=== PATIENT | male | born 1980 | race Caucasian/White ===

== ENCOUNTER 2021-07-21 12:18 | Emergency (ER) | payer OTHER ==
[2021-07-21] MEDS ORDERED: BABY ASPIRIN 81 MG CHEW PO ONE (12:23)
--- NOTE | 2021-07-21 12:23 | ERPHSYRPT ---
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 Today, while at work he felt numb around his mouth and down his left arm with a little bit of anterior, superficial left chest pain. He has never had anything like this before. The patient then passed out. He states that he woke up and his symptoms have improved except there is been some persistent, intermittent shaking of the right lower leg. He also felt as though his left side was weaker than his right side. Patient is not on any medications. He is not taking any new medications. He has had no vomiting or diarrhea. He has no fever or chills. Timing/Duration: today Character of Deficits: new weakness (Left side) Deficits: no difficulties Baseline/Normal Cognition: alert oriented x 3 Current Cognition: alert oriented x 3 Baseline Gait: walks w/o assistance Associated Symptoms: nausea, numbness/tingling in legs/feet (Left upper arm), paresthesia (Perioral), No vision changes Allergies/Adverse Reactions: No Known Drug Allergies Allergy (Unverified 07/21/21 12:33) Home Medications: No Reportable Medications [No Reported Medications] 07/21/21 [History] Travel Risk - International Travel Have you traveled outside of the country in past 3 weeks: No - Coronavirus Screening Are you exhibiting any of the following symptoms?: No Close contact with a COVID-19 positive Pt in past 14-21 Days: No - Review of Systems Constitutional: No Symptoms Eyes: No Symptoms Ears, Nose, & Throat: No Symptoms Respiratory: No Symptoms Cardiac: Chest Pain (Left anterior mild) Abdominal/Gastrointestinal: No Symptoms Genitourinary Symptoms: No Symptoms Musculoskeletal: No Symptoms Skin: No Symptoms Neurological: Parasthesia (Left side perioral, left upper extremity) Psychological: No Symptoms Endocrine: No Symptoms Hematologic/Lymphatic: No Symptoms Immunological/Allergic: No Symptoms All Other Systems: Reviewed and Negative - Past Medical History Pertinent Past Medical History: Yes - Past Surgical History Past Surgical History: Yes - Nursing Vital Signs Nursing Vital Signs: Initial Vital Signs Temperature 97.4 F 07/21/21 12:21 Pulse Rate 87 07/21/21 12:21 Respiratory Rate 18 07/21/21 12:21 Blood Pressure 142/85 07/21/21 12:21 O2 Sat by Pulse Oximetry 95 07/21/21 12:21 Pain Scale Pain Intensity 0 - [place] Coma Scale Best Eye Response ([place]): (4) open spontaneously Best Verbal Response ([place]): (5) oriented Best Motor Response ([place]): (6) obeys commands [place] Total: 15 - Physical Exam General Appearance: no apparent distress, alert, anxiety Eye Exam: bilateral eye: normal inspection, PERRL, EOMI Ears, Nose, Throat Exam: normal ENT inspection, pharynx normal, moist mucous membranes Neck Exam: normal inspection, non-tender, supple, full range of motion Respiratory: normal breath sounds, lungs clear, airway intact, No chest tenderness, No respiratory distress Cardiovascular: regular rate/rhythm, normal heart sounds, normal peripheral pulses Gastrointestinal: soft, normal bowel sounds, No tenderness Rectal Exam: not done Back Exam: normal inspection, normal range of motion, No CVA tenderness, No vertebral tenderness Extremity Exam: normal inspection, normal range of motion, pelvis stable Mental Status: alert, oriented x 3, 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 Exam: normal hearing, normal speech, PERRL Coordination/Gait: normal finger to nose, normal gait Motor/Sensory: no motor deficit, no sensory deficit, no pronator drift Skin Exam: normal color, warm, dry SpO2 Interpretation: normal O2 Delivery: Room Air - Course Nursing assessment & vital signs reviewed: Yes EKG Interpreted by Me: RATE (76), Sinus Rhythm, NORMAL AXIS, NORMAL INTERVALS, NORMAL QRS, NORMAL ST-T, Other (No comparison EKG available.) Ordered Tests: Active Orders 24 hr Category Date Time Status Lay Out Machine Operator STAT Care 07/21/21 12:24 Active EKG-ER Only STAT Care 07/21/21 12:23 Active IV Insertion STAT Care 07/21/21 12:23 Active NPO (ED) STAT Care 07/21/21 12:24 Active Pulse Oximetry (ED) STAT Care 07/21/21 12:23 Active HEAD WITHOUT CONTRAST [CT] Stat Exams 07/21/21 12:20 Completed CBC W DIFF Stat Lab 07/21/21 12:47 Completed CMP Stat Lab 07/21/21 12:47 Completed D-DIMER QUANTITATIVE Stat Lab 07/21/21 12:47 Completed PROTIME WITH INR Stat Lab 07/21/21 12:47 Completed TROPONIN Q3H Lab 07/21/21 12:47 Completed TROPONIN Q3H Lab 07/21/21 15:30 Ordered TROPONIN Q3H Lab 07/21/21 18:30 Ordered TROPONIN Q3H Lab 07/21/21 21:30 Ordered TROPONIN Q3H Lab 07/22/21 00:30 Ordered UA W/RFX UR CULTURE Stat Lab 07/21/21 12:56 Completed Medication Summary Generic Name Dose Route Start Last Admin Trade Name Freq PRN Reason Stop Dose Admin Sodium Chloride 1,000 mls @ 100 mls/hr 07/21/21 12:30 07/21/21 12:48 Sodium Chloride 0.9% 1000 Ml IV 08/20/21 12:29 100 mls/hr .Q10H ALEXANDRO Administration Discontinued Medications Generic Name Dose Route Start Last Admin Trade Name Freq PRN Reason Stop Dose Admin Aspirin 324 mg 07/21/21 12:23 07/21/21 12:57 Baby Aspirin 81 Mg Chew PO 07/21/21 12:24 324 mg STAT ONE Administration Aspirin Confirm 07/21/21 12:56 Baby Aspirin 81 Mg Chew Administered 07/21/21 12:57 Dose 324 mg .ROUTE .STK-MED ONE Lab/Rad Data: Laboratory Result Diagrams 07/21/21 12:47 07/21/21 12:47 Laboratory Results 07/21/21 07/21/21 07/21/21 Range/Units 12:56 12:47 12:47 WBC (4.0-10.5) K/mm3 RBC (4.1-5.6) M/mm3 Hgb (12.5-18.0) gm/dl Hct (42-50) % MCV (78-100) fl MCH (26-32) pg MCHC (32-36) g/dl RDW (11.5-14.0) % Plt Count (150-450) K/mm3 MPV (7.5-11.0) fl Gran % (36.0-66.0) % Eos # (Auto) (0-0.5) Absolute Lymphs (auto) (1.0-4.6) Absolute Monos (auto) (0.0-1.3) Lymphocytes % (24.0-44.0) % Monocytes % (0.0-12.0) % Eosinophils % (0.00-5.0) % Basophils % (0.0-0.4) % Absolute Granulocytes (1.4-6.9) Basophils # (0-0.4) PT 12.2 (9.4-12.5) SECONDS INR 1.03 (0.8-3.0) D-Dimer 499 (215-500) ng/mL Sodium (137-145) mmol/L Potassium (3.5-5.1) mmol/L Chloride (98-107) mmol/L Carbon Dioxide (22-30) mmol/L Anion Gap (5-15) MEQ/L BUN (9-20) mg/dL Creatinine (0.66-1.25) mg/dL Estimated GFR ML/MIN Glucose (74-106) mg/dL Calcium (8.4-10.2) mg/dL Total Bilirubin (0.2-1.3) mg/dL AST (17-59) U/L ALT (0-50) U/L Alkaline Phosphatase (38-126) U/L Troponin I < 0.012 (0.000-0.034) ng/mL Serum Total Protein (6.3-8.2) g/dL Albumin (3.5-5.0) g/dL Urine Color YELLOW (YELLOW) Urine Appearance CLEAR (CLEAR) Urine pH 6.0 (5-6) Ur Specific [place] 1.023 (1.005-1.025) Urine Protein NEGATIVE (Negative) Urine Ketones NEGATIVE (NEGATIVE) Urine Blood NEGATIVE (0-5) Duncan/ul Urine Nitrite NEGATIVE (NEGATIVE) Urine Bilirubin NEGATIVE (NEGATIVE) Urine Urobilinogen 2 (0-1) mg/dL Ur Leukocyte Esterase NEGATIVE (NEGATIVE) Urine WBC (Auto) NONE (0-5) /HPF Urine RBC (Auto) NONE (0-2) /HPF U Epithel Cells (Auto) NONE (FEW) /HPF Urine Bacteria (Auto) NONE SEEN (NEGATIVE) /HPF Urine Mucus (Auto) SLIGHT (NEGATIVE) /HPF Urine Culture Reflexed NO (NO) Urine Glucose NEGATIVE (NEGATIVE) mg/dL 07/21/21 07/21/21 Range/Units 12:47 12:47 WBC 6.8 (4.0-10.5) K/mm3 RBC 5.00 (4.1-5.6) M/mm3 Hgb 15.2 (12.5-18.0) gm/dl Hct 45.2 (42-50) % MCV 90.4 (78-100) fl MCH 30.4 (26-32) pg MCHC 33.6 (32-36) g/dl RDW 12.3 (11.5-14.0) % Plt Count 226 (150-450) K/mm3 MPV 10.8 (7.5-11.0) fl Gran % 65.1 (36.0-66.0) % Eos # (Auto) 0.12 (0-0.5) Absolute Lymphs (auto) 1.55 (1.0-4.6) Absolute Monos (auto) 0.65 (0.0-1.3) Lymphocytes % 22.7 L (24.0-44.0) % Monocytes % 9.5 (0.0-12.0) % Eosinophils % 1.8 (0.00-5.0) % Basophils % 0.9 (0.0-0.4) % Absolute Granulocytes 4.45 (1.4-6.9) Basophils # 0.06 (0-0.4) PT (9.4-12.5) SECONDS INR (0.8-3.0) D-Dimer (215-500) ng/mL Sodium 138 (137-145) mmol/L Potassium 3.9 (3.5-5.1) mmol/L Chloride 106 (98-107) mmol/L Carbon Dioxide 22 (22-30) mmol/L Anion Gap 13.8 (5-15) MEQ/L BUN 19 (9-20) mg/dL Creatinine 0.89 (0.66-1.25) mg/dL Estimated GFR > 60.0 ML/MIN Glucose 109 H (74-106) mg/dL Calcium 8.9 (8.4-10.2) mg/dL Total Bilirubin 0.40 (0.2-1.3) mg/dL AST 39 (17-59) U/L ALT 21 (0-50) U/L Alkaline Phosphatase 92 (38-126) U/L Troponin I (0.000-0.034) ng/mL Serum Total Protein 7.0 (6.3-8.2) g/dL Albumin 3.9 (3.5-5.0) g/dL Urine Color (YELLOW) Urine Appearance (CLEAR) Urine pH (5-6) Ur Specific [place] (1.005-1.025) Urine Protein (Negative) Urine Ketones (NEGATIVE) Urine Blood (0-5) Duncan/ul Urine Nitrite (NEGATIVE) Urine Bilirubin (NEGATIVE) Urine Urobilinogen (0-1) mg/dL Ur Leukocyte Esterase (NEGATIVE) Urine WBC (Auto) (0-5) /HPF Urine RBC (Auto) (0-2) /HPF U Epithel Cells (Auto) (FEW) /HPF Urine Bacteria (Auto) (NEGATIVE) /HPF Urine Mucus (Auto) (NEGATIVE) /HPF Urine Culture Reflexed (NO) Urine Glucose (NEGATIVE) mg/dL - Progress Progress: improved Progress Note: 07/21/21 12:49 CAT scan of the head without contrast is normal. 07/21/21 14:17 Patient states that his symptoms have completely resolved. He is feeling well. He desires to go home. Patient's CAT scan is negative for any acute stroke. Clinically, there is no evidence of any stroke symptoms. The patient blood pressure is in an appropriate range. His D-dimer and troponin levels are negative. His electrolytes are within normal limits. There is no evidence of any urinary tract infection or dehydration. We will discharge the patient to home. Patient is to follow-up with his primary care physician for further management. Counseled pt/family regarding: lab results, diagnosis, need for follow-up, rad results - Departure Departure Disposition: Home Clinical Impression: Syncopal episodes, Non-cardiac chest pain Condition: Stable Critical Care Time: No Referrals: DENISA PEREZ JR [Primary Care Provider] - Additional Instructions: Drink plenty of fluids. Stay out of the sun over the weekend. Stay hydrated well. Avoid any sedating medications or beverages. Follow-up with your primary care physician on 07/24/2021 to make arrangements for further management.
[2021-07-21] MEDS ORDERED: Sodium Chloride 0.9% 1000 ML 1,000 ML IV SCH (12:30)
--- NOTE | 2021-07-21 12:35 | XRAY ---
Indication: Dizziness. Syncope. Stroke. Multiple contiguous axial images obtained through the head without contrast. Comparison: None Normal appearing brain parenchyma, ventricles, and bony calvarium. Visualized paranasal sinuses and mastoid air cells are clear. Impression: Normal CT head without contrast exam.
[2021-07-21] MEDS ORDERED: Sodium Chloride 0.9% 1000 ML 1,000 ML ONE (12:46)
[2021-07-21] MEDS ORDERED: BABY ASPIRIN 81 MG CHEW ONE (12:56)
[2021-07-21 13:02] LABS: Absolute Neutrophil Ct (ANC) 4.45 (1.4-6.9); BASOPHIL % 0.9 % (0.0-0.4); Basophil (Absolute #) 0.06 (0-0.4); Eosinophil % 1.8 % (0.00-5.0); Eosinophil (Absolute #) 0.12 (0-0.5); Hematocrit 45.2 % (42-50); Hemoglobin 15.2 gm/dl (12.5-18.0); INR 1.03 (0.8-3.0); Lymphocyte (Absolute #) 1.55 (1.0-4.6); Lymphocytes % 22.7 % (24.0-44.0); Mean Cell Volume 90.4 fl (78-100); Mean Corpuscular Hemoglobin 30.4 pg (26-32); Mean Corpuscular Hgb Concent. 33.6 g/dl (32-36); Mean Platelet Volume 10.8 fl (7.5-11.0); Monocyte (Absolute #) 0.65 (0.0-1.3); Monocytes % 9.5 % (0.0-12.0); Neutrophil % 65.1 % (36.0-66.0); PROTIME 12.2 SECONDS (9.4-12.5); Platelet Count 226 K/mm3 (150-450); Red Cell Distribution Width 12.3 % (11.5-14.0); White Blood Count 6.8 K/mm3 (4.0-10.5)
[2021-07-21 13:15] LABS: ALBUMIN 3.9 g/dL (3.5-5.0); ALKALINE PHOSPHATASE 92 U/L (38-126); ANION GAP 13.8 MEQ/L (5-15); BLOOD UREA NITROGEN 19 mg/dL (9-20); CHLORIDE 106 mmol/L (98-107); Calcium 8.9 mg/dL (8.4-10.2); Carbon Dioxide 22 mmol/L (22-30); Creatinine 1 0.89 mg/dL (0.66-1.25); EST GLOMERULAR FILTRATION RATE > 60.0 ML/MIN; Glucose 109 mg/dL (74-106); Potassium 3.9 mmol/L (3.5-5.1); SGOT/AST 39 U/L (17-59); SGPT/ALT 21 U/L (0-50); SODIUM 138 mmol/L (137-145)
[2021-07-21 13:57] LABS: Appearance CLEAR (CLEAR); Bilirubin NEGATIVE (NEGATIVE); Blood NEGATIVE Ery/ul (0-5); Glucose NEGATIVE (NEGATIVE); Ketones NEGATIVE (NEGATIVE); Leukocyte Esterase NEGATIVE (NEGATIVE); Mucus SLIGHT /HPF (NEGATIVE); Nitrite NEGATIVE (NEGATIVE); Protein,Urine Dip NEGATIVE (Negative); Specific Gravity 1.023 (1.005-1.025); Urobilinogen 2 mg/dL (0-1)
[2021-07-21 14:01] LABS: Bacteria NONE SEEN /HPF (NEGATIVE)
[2021-07-21 14:06] VITALS: O2SAT 98
[2021-07-21 14:49] VITALS: BP 138/90; PULSE 68
== END 2021-07-21 14:54 | disposition home or self-care (01) ==
LOC: ED 12:18
DX: R55 Syncope and collapse (principal); R07.89 Other chest pain
CPT/HCPCS: 36000; 36415; 70450; 80053; 81001; 84484; 85025; 85379; 85610; 93005; 93041; 94760; 96360; 96361; 99284; A9270-GY

== ENCOUNTER 2025-09-28 14:45 | Emergency (ER) | payer OTHER ==
[2025-09-28 14:59] VITALS: TEMP 98.4
[2025-09-28 15:14] LABS: BASOPHIL % 1.0 % (0.2-1.2); Basophil (Absolute #) 0.07 x10^3/uL (0.01-0.08); Eosinophil (Absolute #) 0 x10^3/uL (0.04-0.54); Hematocrit 46.2 % (40.1-51.0); Hemoglobin 15.6 g/dL (13.7-17.5); IMMATURE GRAN # 0.03 x10^3u/L (0.001-0.031); IMMATURE GRAN % 0.4 % (0.001-0.429); Lymphocyte (Absolute #) 0.94 x10^3/uL (1.32-3.57); Mean Corpuscular Hemoglobin 29.7 pg (25.7-32.2); Mean Corpuscular Hgb Concent. 33.8 g/dL (32.3-36.5); Monocyte (Absolute #) 0.73 x10^3/uL (0.30-0.82); NUCLEATED RBC # 0.00 x10^3u/L (0.00-0.012); NUCLEATED RBC % 0.0 % (0.00-0.2); Platelet Count 241 x10^3/uL (163-337); Red Blood Count 5.25 x10^6/uL (4.63-6.08); White Blood Count 7.3 x10^3/uL (4.23-9.07)
[2025-09-28 15:30] LABS: Calcium 8.9 mg/dL (8.4-10.2); Carbon Dioxide 23.0 mmol/L (22-30); Creatinine 1 1.07 mg/dL (0.66-1.25); EST GLOMERULAR FILTRATION RATE 88.3 ML/MIN; Glucose 118.0 mg/dL (74-106); NT PRO BNPII 59.5 pg/mL (<300); Potassium 4.0 mmol/L (3.5-5.1); SGOT/AST 24.0 U/L (17-59); SGPT/ALT 22.0 U/L (0-50); Total Protein 7.6 g/dL (6.3-8.2)
--- NOTE | 2025-09-28 15:37 | ERPHSYRPT ---
- History of Present Illness Time Seen by Provider: 09/28/25 15:33 Source: patient Exam Limitations: no limitations Patient Subjective Stated Complaint: PT STATES HE HAS SHORTNESS OF BREATH AND CHEST PAIN. Triage Nursing Assessment: PT ARRIVES TO THE ER VIA PRIVATE VEHICLE AND AMBULATES HIMSELF INTO THE ED WITHOUT DIFFICULTY. PT IS ALERT AND ORIENTED X4, PULSES PRESENT AND EQUAL BILATERALLY, PT DOES NOT APPEAR TO BE IN RESPIRATORY DISTRESS. PT LUNG SOUNDS ARE CLEAR AND DIMINISHED BILATERALLY. PT STATES HE HAS HAD WHAT HE THOUGHT WAS A SINUS INFECTION FOR FOUR DAYS BUT THE SHORTNESS OF BREATH JUST STARTED TODAY. PT DOES SAY THAT HE HAD A HEART CATHETERIZATION DONE WITH DR. GORDON YESTERDAY AT [facility]. PT STATES THAT HE GOT ONE STENT PLACED TO HIS DISTAL LAD AND WAS SENT HOME YESTERDAY. PT DID NOT USE HIS INHALER AT HOME. PT DOES STATE THAT HE RECEIVED HIS FLU SHOT AND COVID BOOSTER YESTERDAY WELL. Physician History: Patient is a 45-year-old male presents to our ED for evaluation of shortness of breath. Patient felt that his symptoms were due to a sinus infection. However shortness of breath has not improved over the past 4 days. No active chest pain. Patient reports he had a heart catheterization done yesterday at [facility]. There were no complications. 1 stent was placed in his distal LAD. Patient was sent home after procedure. No associated nausea vomiting or diaphoresis. Patient voices no other complaints or concerns at this time. Portions of this note were created with voice recognition technology. There may be grammatical, spelling, punctuation or sound alike errors Timing/Duration: today Activities at Onset: none Severity of Dyspnea-Max: moderate Severity of Dyspnea-Current: mild Possible Cause: no prior episodes Modifying Factors: Improves With: activity Associated Symptoms: denies symptoms Allergies/Adverse Reactions: albuterol Allergy (Intermediate, Verified 09/28/25 14:46) Home Medications: Aspirin 1 tab PO DAILY 09/28/25 [History] Atorvastatin Calcium 40 mg PO HS 09/28/25 [History] Clopidogrel Bisulfate [Plavix] 75 mg PO DAILY 09/28/25 [History] Fluoxetine HCl 40 mg PO DAILY 09/28/25 [History] Ipratropium Browning [Atrovent Hfa] 17 mcg IH Q6H PRN PRN 09/28/25 [History] Isosorbide Mononitrate 30 mg [Imdur 30 MG] 30 mg PO DAILY 09/28/25 [History] Metoprolol Succinate 25 mg PO DAILY 09/28/25 [History] PANTOPRAZOLE 40 mg Tablet [Protonix 40MG Tablet] 40 mg PO DAILY 09/28/25 [History] Trazodone HCl 50 mg [Desyrel 50 mg] 50 mg PO HS 09/28/25 [History] Viloxazine HCl [Qelbree] 200 mg PO DAILY 09/28/25 [History] Hx Tetanus, Diphtheria Vaccination/Date Given: Yes Hx Influenza Vaccination/Date Given: Yes Hx Pneumococcal Vaccination/Date Given: No Immunizations Up to Date: Yes Travel Risk - International Travel Have you traveled outside of the country in past 3 weeks: No - Emerging Infectious Disease Are you exhibiting symptoms associated with any current EIDs: Yes Symptoms: Cough: New Onset, Shortness of Breath - Review of Systems All Other Systems: Reviewed and Negative - Past Medical History Pertinent Past Medical History: Yes Neurological History: No Pertinent History ENT History: No Pertinent History Cardiac History: No Pertinent History Respiratory History: Sleep Apnea Endocrine Medical History: No Pertinent History Musculoskeletal History: Arthritis GI Medical History: GERD History: No Pertinent History Psycho-Social History: Anxiety, Depression Male Reproductive Disorders: No Pertinent History - Past Surgical History Past Surgical History: Yes Neuro Surgical History: No Pertinent History Cardiac: Cardiac Catheterization Respiratory: No Pertinent History Gastrointestinal: Hernia Repair Genitourinary: No Pertinent History Musculoskeletal: Orthopedic Surgery Male Surgical History: No Pertinent History Other Surgical History: r acl repair, RIGHT MENISCUS REPAIR, CARDIAC CATH 2024 - Social History Smoking Status: Former smoker Exposure to second hand smoke: No Drug Use: none - Social Determinants of Health Will the patient participate in the screening: Yes Do you worry about a steady place to live?: No Do you have any problems with any of the following?: No known problems In the past 12 months,have you had to go without utilities?: No Transportation Issues: No Has anyone in your support network made you feel unsafe?: No Have you or anyone in your house had to go w/o enough food: No - Nursing Vital Signs Nursing Vital Signs: Initial Vital Signs Pulse Rate 109 H 09/28/25 14:47 Respiratory Rate 17 09/28/25 14:47 Blood Pressure 109/84 09/28/25 14:47 O2 Sat by Pulse Oximetry 100 09/28/25 14:47 Pain Scale Pain Intensity 3 - Physical Exam General Appearance: no apparent distress, alert Eye Exam: PERRL/EOMI Neck Exam: normal inspection, supple Cardiovascular/Chest Exam: normal heart sounds, regular rate/rhythm Abdominal/Gastrointestinal Exam: soft, No tenderness, No distention, No mass Extremity Exam: non-tender, normal range of motion, normal inspection, no calf tenderness, no pedal edema Neurologic Exam: alert, oriented x 3, cooperative, policewoman II-XII nml as tested, sensation nml, No motor deficits Skin Exam: normal color, warm, No dry Lymphatic Exam: No adenopathy SpO2 Interpretation: normal SpO2: 94 O2 Delivery: Room Air - Course Nursing assessment & vital signs reviewed: Yes EKG Interpreted by Me: RATE ([id number]), Sinus Tach, NORMAL AXIS, NORMAL INTERVALS, NORMAL QRS - Radiology Exams Chest X-ray Interpretation: Teleradiologist Report (Portable chest demonstrates mild left base infiltrate/atelectasis/effusion.) - CT Exams Chest CT Interpretation: Tele-radiologist Report (No comps. Negative PE. Cardiomegaly bibasilar atelectasis/scarring. Fatty liver. 14 cm splenomegaly. Nothing acute) Ordered Tests: Active Orders 24 hr Category Date Time Status Occ Ther STAT Care 09/28/25 15:06 Active EKG-ER Only STAT Care 09/28/25 15:05 Active IV Insertion STAT Care 09/28/25 15:05 Active Pulse Oximetry (ED) STAT Care 09/28/25 15:05 Active CHEST 1 VIEW (PORTABLE) Stat Exams 09/28/25 15:05 Completed CHEST WITH CONTRAST [CT] Stat Exams 09/28/25 17:58 Taken BLOOD CULTURE Stat Lab 09/28/25 18:15 Received CBC W DIFF Stat Lab 09/28/25 15:00 Completed CMP Stat Lab 09/28/25 15:00 Completed NT PRO BNPII Stat Lab 09/28/25 15:00 Completed TROPONIN Q4H Lab 09/28/25 15:00 Completed TROPONIN Q4H Lab 09/28/25 17:54 Completed TROPONIN Q4H Lab 09/28/25 23:15 Ordered Respiratory Therapy Assessment DAILY RT 09/28/25 15:57 Active Medication Summary Discontinued Medications Generic Name Dose Route Start Last Admin Trade Name Prabha NULL Reason Stop Dose Admin Azithromycin Confirm 09/28/25 19:05 Azithromycin Inj Administered 09/28/25 19:06 Dose 500 mg IV .STK-MED ONE Methylprednisolone Sodium 0 mg 09/28/25 15:43 09/28/25 15:56 Succinate 125 mg/ Sterile IV 09/28/25 15:44 125 mg Water 2 ml STAT ONE Administration Ceftriaxone Sodium 2 gm in 100 mls @ 200 mls/hr 09/28/25 17:55 09/28/25 18:32 Rocephin 2 Gm/100 Ml Nacl IV 09/28/25 18:24 Infused STAT ONE Infusion Azithromycin 500 mg/ Sodium 250 mls @ 250 mls/hr 09/28/25 17:56 09/28/25 20:09 Chloride IV 09/28/25 18:55 Infused STAT STA Infusion Ceftriaxone Sodium Confirm 09/28/25 17:59 Rocephin 2 Gm/100 Ml Nacl Administered 09/28/25 18:00 Dose 2 gm in 100 mls @ ud IV .STK-MED ONE Sodium Chloride Confirm 09/28/25 19:05 Sodium Chloride 0.9% 250 Ml Administered 09/28/25 19:06 Dose 250 mls @ ud IV .STK-MED ONE Ipratropium Browning Confirm 09/28/25 15:48 Ipratropium Browning 0.5 Mg/Neb Administered 09/28/25 15:49 Dose 0.5 mg IH .STK-MED ONE Ipratropium Browning 0.5 mg 09/28/25 15:56 09/28/25 15:56 Ipratropium Browning 0.5 Mg/Neb IH 09/28/25 15:57 0.5 mg STAT ONE Administration Methylprednisolone Sodium Succinate Confirm 09/28/25 15:56 Methylprednis Sod Succ 125 Mg/2 Ml Vial Administered 09/28/25 15:57 Dose 125 mg .ROUTE .STK-MED ONE Sterile Water Confirm 09/28/25 15:55 Water For Injection,Sterile 10 Ml Vial Administered 09/28/25 15:56 Dose 10 ml IJ .STK-MED ONE Lab/Rad Data: Laboratory Result Diagrams 09/28/25 15:00 09/28/25 15:00 Laboratory Results 09/28/25 09/28/25 09/28/25 Range/Units 17:54 15:00 15:00 WBC (4.23-9.07) x10^3/uL RBC (4.63-6.08) x10^6/uL Hgb (13.7-17.5) g/dL Hct (40.1-51.0) % MCV (79.0-92.2) fL MCH (25.7-32.2) pg MCHC (32.3-36.5) g/dL RDW (11.6-14.4) % Plt Count (163-337) x10^3/uL MPV (9.4-12.4) fL Gran % (34.0-67.9) % Immature Gran % (Auto) (0.001-0.429) % Nucleat RBC Rel Count (0.00-0.2) % Eos # (Auto) (0.04-0.54) x10^3/uL Immature Gran # (Auto) (0.001-0.031) x10^3u/L Absolute Lymphs (auto) (1.32-3.57) x10^3/uL Absolute Monos (auto) (0.30-0.82) x10^3/uL Absolute Nucleated RBC (0.00-0.012) x10^3u/L Lymphocytes % (21.8-53.1) % Monocytes % (5.3-12.2) % Eosinophils % (0.8-7.0) % Basophils % (0.2-1.2) % Absolute Granulocytes (1.78-5.38) x10^3/uL Basophils # (0.01-0.08) x10^3/uL Sodium 135 (135-145) mmol/L Potassium 4.0 (3.5-5.1) mmol/L Chloride 103 (98-107) mmol/L Carbon Dioxide 23 (22-30) mmol/L Anion Gap 12.8 (5-15) MEQ/L BUN 10 (9-20) mg/dL Creatinine 1.07 (0.66-1.25) mg/dL Estimated GFR 88.3 ML/MIN Glucose 118 H (74-106) mg/dL Calcium 8.9 (8.4-10.2) mg/dL Total Bilirubin 0.50 (0.2-1.3) mg/dL AST 24 (17-59) U/L ALT 22 (0-50) U/L Alkaline Phosphatase 117 (38-126) U/L Troponin I < 0.012 < 0.012 (0.000-0.033) ng/mL NT-Pro-B Natriuret Pep 59.5 (<300) pg/mL Serum Total Protein 7.6 (6.3-8.2) g/dL Albumin 4.1 (3.5-5.0) g/dL 09/28/25 Range/Units 15:00 WBC 7.3 (4.23-9.07) x10^3/uL RBC 5.25 (4.63-6.08) x10^6/uL Hgb 15.6 (13.7-17.5) g/dL Hct 46.2 (40.1-51.0) % MCV 88.0 (79.0-92.2) fL MCH 29.7 (25.7-32.2) pg MCHC 33.8 (32.3-36.5) g/dL RDW 11.6 (11.6-14.4) % Plt Count 241 (163-337) x10^3/uL MPV 10.2 (9.4-12.4) fL Gran % 75.8 H (34.0-67.9) % Immature Gran % (Auto) 0.4 (0.001-0.429) % Nucleat RBC Rel Count 0.0 (0.00-0.2) % Eos # (Auto) 0 L (0.04-0.54) x10^3/uL Immature Gran # (Auto) 0.03 (0.001-0.031) x10^3u/L Absolute Lymphs (auto) 0.94 L (1.32-3.57) x10^3/uL Absolute Monos (auto) 0.73 (0.30-0.82) x10^3/uL Absolute Nucleated RBC 0.00 (0.00-0.012) x10^3u/L Lymphocytes % 12.8 L (21.8-53.1) % Monocytes % 10.0 (5.3-12.2) % Eosinophils % 0.0 L (0.8-7.0) % Basophils % 1.0 (0.2-1.2) % Absolute Granulocytes 5.56 H (1.78-5.38) x10^3/uL Basophils # 0.07 (0.01-0.08) x10^3/uL Sodium (135-145) mmol/L Potassium (3.5-5.1) mmol/L Chloride (98-107) mmol/L Carbon Dioxide (22-30) mmol/L Anion Gap (5-15) MEQ/L BUN (9-20) mg/dL Creatinine (0.66-1.25) mg/dL Estimated GFR ML/MIN Glucose (74-106) mg/dL Calcium (8.4-10.2) mg/dL Total Bilirubin (0.2-1.3) mg/dL AST (17-59) U/L ALT (0-50) U/L Alkaline Phosphatase (38-126) U/L Troponin I (0.000-0.033) ng/mL NT-Pro-B Natriuret Pep (<300) pg/mL Serum Total Protein (6.3-8.2) g/dL Albumin (3.5-5.0) g/dL - Progress Progress: improved Air Movement: good Progress Note: Chest x-ray independently reviewed and interpreted by Dr. Samaniego at 3:42 PM. No previous chest x-rays available for comparison. However no acute findings. This is a preliminary read. Formal read pending 09/28/25 15:42 Case discussed with stock letterer Dr. Crawford who feels that this is likely not related to his heart. He thinks this may be a possible forming pneumonia. We will obtain blood cultures and administer antibiotics. However in light of patient's ongoing symptomology he will be transferred to [facility]. Dr. Crawford will accept him. I talked to Dr. Crawford at 5:48 PM. 09/28/25 17:52 Case discussed with hospitalist at [facility] in [place] who accepts transfer at 6:24 PM. They want to be notified of the pending CTA chest results prior to transfer. 09/28/25 18:24 Patient received antibiotics to cover possible infection/pneumonia. History obtained from patient Differential diagnosis includes pneumonia, PE, CHF No acute findings on CTA chest. Negative PE study 09/28/25 19:48 Patient is a 45-year-old male presents to our ED for evaluation of shortness of breath. Patient felt that his symptoms were due to a sinus infection. However shortness of breath has not improved over the past 4 days. No active chest pain. Patient reports he had a heart catheterization done yesterday at [facility]. There were no complications. 1 stent was placed in his distal LAD. Physical exam essentially nonremarkable. Laboratory workup shows troponin negative x 2. CTA chest negative for PE. Chest x-ray shows left lower lobe infiltrate/effusion. Patient aware that he will be transferred to [facility] been sent for further evaluation and treatment. Complexity of problems addressed is moderate acute complicated. No critical care time. Complex of data reviewed and analyzed is extensive. Test ordered chest reviewed results analyzed and correlated clinically with history and physical exam. Risk of complication at risk of morbidity/mortality of patient management is high. Patient requires transfer to higher level of care. Vital stable. Time spent to transfer patient approximately 20 minutes. Plan of care established for shared decision making. No social determinants of health present to impede follow-up. Portions of this note were created with voice recognition technology. There may be grammatical, spelling, punctuation or sound alike errors 09/28/25 21:54 Blood Culture(s) Obtained: No Antibiotics given: No Counseled pt/family regarding: lab results, diagnosis, need for follow-up, rad results - Departure Departure Disposition: Transfer Clinical Impression: Shortness of breath, Hypoxia, Pleural effusion Condition: Stable Critical Care Time: No Referrals: DENISA PEREZ JR [Primary Care Provider, ORTHOPEDICS] - Follow up/PCP as directed
[2025-09-28] MEDS ORDERED: Atrovent 0.5MG NEBULE IH ONE (15:48)
[2025-09-28] MEDS ORDERED: Sterile H2O 10 ml IJ ONE (15:55)
[2025-09-28] MEDS: solu-MEDROL 125 MG, Sterile H2O 10 ml 2 ML IV ONE (15:56)
[2025-09-28] MEDS: Atrovent 0.5MG NEBULE IH ONE (15:56)
--- NOTE | 2025-09-28 16:13 | XRAY ---
Indication: Short of breath. Comparison: None Portable chest demonstrates mild left base infiltrate/atelectasis/effusion. Remaining heart and lungs unremarkable. Bony thorax intact.
[2025-09-28] MEDS ORDERED: ROCEPHIN 2 GM/100 ML NACL 2 GM/100 ML IVPB IV ONE (17:59)
[2025-09-28] MEDS: ROCEPHIN 2 GM/100 ML NACL 2 GM/100 ML IVPB IV ONE (18:02)
[2025-09-28] MEDS ORDERED: ZITHROMAX IV IV ONE (19:05)
[2025-09-28] MEDS: ZITHROMAX IV*** 500 MG in Sodium Chloride 0.9% 250 ML 250 ML IV STA (19:09)
[2025-09-28 21:59] VITALS: O2SAT 94
[2025-09-28 22:08] VITALS: BP 114/71; PULSE 95; RESP 20
--- NOTE | 2025-09-29 09:02 | XRAY ---
Indication: Short of breath. Multiple contiguous axial images obtained through the chest using 80 cc Isovue 370 contrast and PE protocol. Comparison: None Adequate opacification pulmonary arteries to include lobar and segmental branches. No pulmonary embolus. Heart is enlarged. Aorta is normal in course and caliber. No pathologic mediastinal/hilar lymphadenopathy. Lungs demonstrates mild bibasilar subsegmental atelectasis/scarring. No suspicious pulmonary mass/nodule, infiltrate, or effusion. Bony thorax intact with osteopenia and minimal degenerative changes throughout the spine. Limited upper abdomen demonstrates mild diffuse fatty liver, 14.1 cm splenomegaly, and colonic diverticulosis. Impression: 1. Negative pulmonary embolus. 2. Incidental cardiomegaly, atelectasis/scarring, chronic bony findings, fatty liver, splenomegaly, and colonic diverticulosis.
== END 2025-09-28 22:05 | disposition short-term general hospital (02) ==
LOC: ED 14:45
DX: R06.02 Shortness of breath (principal); R09.02 Hypoxemia; J90 Pleural effusion, not elsewhere classified; R07.9 Chest pain, unspecified; Z79.02 Long term (current) use of antithrombotics/antiplatelets; Z79.899 Other long term (current) drug therapy

== ENCOUNTER 2025-11-03 17:44 | Observation (INO) | payer SELFPAY ==
--- NOTE | 2025-11-03 17:54 | ERPHSYRPT ---
<DONALDO MARHC - Last Filed: 11/03/25 19:25> - History of Present Illness Time Seen by Provider: 11/03/25 17:54 Historian: patient, family Exam Limitations: no limitations Physician History: This 45-year-old overweight white male patient arrives per private vehicle with a complaint of stabbing constant substernal central chest pain that is associated with tingling in his left arm. Patient took 1 nitroglycerin and 1 baby aspirin. On my examination patient has no chest pain. It has completely subsided as has the left arm tingling. He is not short of breath. No abdominal pain. He has no nausea vomiting or diarrhea symptoms. Patient had a single cardiac stent (LAD) placed at [facility] in [facility]. Patient is on Plavix and a baby aspirin daily. He has a history of hyperlipidemia, hypertension, gastroesophageal reflux disease and sleep apnea. Patient has a history of anxiety and depression. Timing/Duration: today Quality: sharpness, stabbing Location: substernal, central Chest Pain Radiation: arm (Separate left arm stinging) Severity of Pain-Max: mild (To moderate) Severity of Pain-Current: none Modifying Factors: Improves With: nitroglycerin, aspirin Associated Symptoms: denies symptoms Prior Chest Pain/Cardiac Workup: cardiac cath, heart attack Nitro Today/Relief: no nitro taken today, 0.4 mg x 1 (Provided at home) Aspirin Treatment Today: no aspirin today, 81 mg x 1 (Provided at home) Allergies/Adverse Reactions: albuterol Allergy (Intermediate, Verified 11/03/25 17:51) Home Medications: Aspirin 1 tab PO DAILY 09/28/25 [History] Atorvastatin Calcium 40 mg PO HS 09/28/25 [History] Clopidogrel Bisulfate [Plavix] 75 mg PO DAILY 09/28/25 [History] Fluoxetine HCl 40 mg PO DAILY 09/28/25 [History] Ipratropium [place] [Atrovent Hfa] 17 mcg IH Q6H PRN PRN 09/28/25 [History] Isosorbide Mononitrate 30 mg [Imdur 30 MG] 30 mg PO DAILY 09/28/25 [History] Metoprolol Succinate 25 mg PO DAILY 09/28/25 [History] Trazodone HCl 50 mg [Desyrel 50 mg] 50 mg PO HS 09/28/25 [History] Hx Tetanus, Diphtheria Vaccination/Date Given: Yes Hx Influenza Vaccination/Date Given: Yes Hx Pneumococcal Vaccination/Date Given: No Travel Risk - International Travel Have you traveled outside of the country in past 3 weeks: No - Emerging Infectious Disease Are you exhibiting symptoms associated with any current EIDs: Yes Symptoms: Cough: New Onset, Shortness of Breath - Review of Systems Constitutional: No Symptoms Eyes: No Symptoms Ears, Nose, & Throat: No Symptoms Respiratory: No Symptoms Cardiac: No Symptoms, Chest Pain (Now resolved) Abdominal/Gastrointestinal: No Symptoms Genitourinary Symptoms: No Symptoms Musculoskeletal: No Symptoms Skin: No Symptoms Neurological: No Symptoms Psychological: No Symptoms Endocrine: No Symptoms Hematologic/Lymphatic: No Symptoms Immunological/Allergic: No Symptoms All Other Systems: Reviewed and Negative - Past Medical History Pertinent Past Medical History: Yes Neurological History: No Pertinent History ENT History: No Pertinent History Cardiac History: No Pertinent History Respiratory History: Sleep Apnea Endocrine Medical History: No Pertinent History Musculoskeletal History: Arthritis GI Medical History: GERD History: No Pertinent History Psycho-Social History: Anxiety, Depression Male Reproductive Disorders: No Pertinent History - Past Surgical History Past Surgical History: Yes Neuro Surgical History: No Pertinent History Cardiac: Cardiac Catheterization Respiratory: No Pertinent History Gastrointestinal: Hernia Repair Genitourinary: No Pertinent History Musculoskeletal: Orthopedic Surgery Male Surgical History: No Pertinent History Other Surgical History: r acl repair, RIGHT MENISCUS REPAIR, CARDIAC CATH 2024 - Social History Smoking Status: Former smoker Exposure to second hand smoke: No Drug Use: none - Social Determinants of Health Will the patient participate in the screening: Yes Do you worry about a steady place to live?: No In the past 12 months,have you had to go without utilities?: No Transportation Issues: No Has anyone in your support network made you feel unsafe?: No Have you or anyone in your house had to go w/o enough food: No - Physical Exam General Appearance: no apparent distress, alert, anxiety Eye Exam: PERRL/EOMI, eyes nml inspection Ears, Nose, Throat Exam: normal ENT inspection, moist mucous membranes Neck Exam: normal inspection, non-tender, supple, full range of motion Respiratory Exam: normal breath sounds, lungs clear, airway intact, No chest tenderness, No respiratory distress Cardiovascular Exam: regular rate/rhythm, normal heart sounds, normal peripheral pulses Gastrointestinal/Abdomen Exam: soft, normal bowel sounds, No tenderness Rectal Exam: not done Back Exam: normal inspection, normal range of motion, No CVA tenderness, No vertebral tenderness Extremity Exam: normal inspection, normal range of motion, pelvis stable Neurologic Exam: alert, oriented x 3, cooperative, 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 as tested, nml cerebellar function, nml station & gait, sensation nml Skin Exam: normal color, warm, dry Lymphatic Exam: No adenopathy SpO2 Interpretation: normal O2 Delivery: Room Air - Course Nursing assessment & vital signs reviewed: Yes - Progress Progress: improved, re-examined Air Movement: good Progress Note: 11/03/25 18:57 My medical decision making and the assignment of moderate complexity of this patient's medical issue today is based on review of the patient's past medical history, reviewed patient's medication list, reviewed patient drug allergy list, history presents and physical findings on examination. The workup in this patient includes placement of intravenous line, twelve-lead EKG, 3 baby aspirin orally, CBC, CMP, magnesium level, troponin level, chest x-ray, PT/INR. Differential diagnosis includes was not limited to myocardial infarction, electrolyte abnormalities, pulmonary infiltrate, arrhythmia 11/03/25 19:25 I interpreted the patient's laboratory data results. Based on laboratory data results there are no acute, emergent medical issues. I interpreted the patient's preliminary chest x-ray report. There is no evidence of any acute cardiopulmonary process. The patient has significant cardiac history. Although the the troponin level is negative and there is no evidence of any acute findings on the patient's twelve-lead EKG. The patient will undergo a second troponin level and repeat twelve-lead EKG. He will need to be observed in the hospital setting. I reviewed the patient history and the initial laboratory data results and EKG findings on this patient with Dr. Ashok Samaniego. He will follow-up on the pending studies and make final disposition. Blood Culture(s) Obtained: No Antibiotics given: No Medical Desision Making - Diagnostic Testing Diagnostic test were ordered, analyzed, and reviewed by me: Yes Radiological Interpretation: Interpreted by me, Reviewed by me, Teleradiologist Report - Risk of complications The pt has a high risk of morbidity or mortality based on: Decision regarding hospitilization or escalation of hosp level of care - Departure Departure Disposition: Observation Clinical Impression: Chest pain, ACS (acute coronary syndrome) Condition: Stable Critical Care Time: No Referrals: DENISA PEREZ JR [Primary Care Provider, ORTHOPEDICS] - Follow up/PCP as directed <ASHOK SAMANIEGO - Last Filed: 11/03/25 21:07> - Nursing Vital Signs Nursing Vital Signs: Initial Vital Signs Temperature 97.8 F 11/03/25 17:44 Pulse Rate 92 H 11/03/25 17:44 Respiratory Rate 23 11/03/25 17:44 Blood Pressure 122/99 11/03/25 17:44 O2 Sat by Pulse Oximetry 94 L 11/03/25 17:44 Pain Scale Pain Intensity 4 Ordered Tests: Active Orders 24 hr Category Date Time Status EKG-ER Only STAT Care 11/03/25 17:54 Completed IV Insertion STAT Care 11/03/25 17:54 Active Pulse Oximetry (ED) STAT Care 11/03/25 17:54 Active CHEST 1 VIEW (PORTABLE) Stat Exams 11/03/25 17:54 Taken CBC W DIFF Stat Lab 11/03/25 17:50 Completed CMP Stat Lab 11/03/25 18:20 Completed MAGNESIUM Stat Lab 11/03/25 18:20 Completed PROTIME WITH INR Stat Lab 11/03/25 17:50 Completed TROPONIN Q4H Lab 11/03/25 18:20 Completed TROPONIN Q4H Lab 11/03/25 20:15 Completed TROPONIN Q4H Lab 11/04/25 02:00 Ordered Transfer Order Routine Transfer 11/03/25 Ordered Medication Summary Discontinued Medications Generic Name Dose Route Start Last Admin Trade Name Timq PRN Reason Stop Dose Admin Aspirin 324 mg 11/03/25 17:54 11/03/25 18:04 Aspirin 81 Mg Tab.Chew PO 11/03/25 17:55 Not Given STAT ONE Aspirin 243 mg 11/03/25 18:10 11/03/25 18:18 Aspirin 81 Mg Tab.Chew PO 11/03/25 18:11 243 mg STAT ONE Administration Aspirin Confirm 11/03/25 18:17 Aspirin 81 Mg Tab.Chew Administered 11/03/25 18:18 Dose 243 mg .ROUTE .STK-MED ONE Lab/Rad Data: Laboratory Result Diagrams 11/03/25 17:50 11/03/25 18:20 Laboratory Results 11/03/25 11/03/25 11/03/25 Range/Units 20:15 18:20 18:20 WBC (4.23-9.07) x10^3/uL RBC (4.63-6.08) x10^6/uL Hgb (13.7-17.5) g/dL Hct (40.1-51.0) % MCV (79.0-92.2) fL MCH (25.7-32.2) pg MCHC (32.3-36.5) g/dL RDW (11.6-14.4) % Plt Count (163-337) x10^3/uL MPV (9.4-12.4) fL Gran % (34.0-67.9) % Immature Gran % (Auto) (0.001-0.429) % Nucleat RBC Rel Count (0.00-0.2) % Eos # (Auto) (0.04-0.54) x10^3/uL Immature Gran # (Auto) (0.001-0.031) x10^3u/L Absolute Lymphs (auto) (1.32-3.57) x10^3/uL Absolute Monos (auto) (0.30-0.82) x10^3/uL Absolute Nucleated RBC (0.00-0.012) x10^3u/L Lymphocytes % (21.8-53.1) % Monocytes % (5.3-12.2) % Eosinophils % (0.8-7.0) % Basophils % (0.2-1.2) % Absolute Granulocytes (1.78-5.38) x10^3/uL Basophils # (0.01-0.08) x10^3/uL PT (9.4-12.5) SECONDS INR (0.8-3.0) Sodium 137 (135-145) mmol/L Potassium 4.5 (3.5-5.1) mmol/L Chloride 103 (98-107) mmol/L Carbon Dioxide 24 (22-30) mmol/L Anion Gap 14.8 (5-15) MEQ/L BUN 18 (9-20) mg/dL Creatinine 1.05 (0.66-1.25) mg/dL Estimated GFR 90.3 ML/MIN Glucose 103 (74-106) mg/dL Calcium 9.7 (8.4-10.2) mg/dL Magnesium 2.2 (1.6-2.3) mg/dL Total Bilirubin 0.50 (0.2-1.3) mg/dL AST 28 (17-59) U/L ALT 25 (0-50) U/L Alkaline Phosphatase 101 (38-126) U/L Troponin I < 0.012 < 0.012 (0.000-0.033) ng/mL Serum Total Protein 7.5 (6.3-8.2) g/dL Albumin 4.3 (3.5-5.0) g/dL 11/03/25 11/03/25 Range/Units 17:50 17:50 WBC 6.8 (4.23-9.07) x10^3/uL RBC 5.47 (4.63-6.08) x10^6/uL Hgb 16.3 (13.7-17.5) g/dL Hct 48.4 (40.1-51.0) % MCV 88.5 (79.0-92.2) fL MCH 29.8 (25.7-32.2) pg MCHC 33.7 (32.3-36.5) g/dL RDW 11.8 (11.6-14.4) % Plt Count 278 (163-337) x10^3/uL MPV 10.4 (9.4-12.4) fL Gran % 56.0 (34.0-67.9) % Immature Gran % (Auto) 0.4 (0.001-0.429) % Nucleat RBC Rel Count 0.0 (0.00-0.2) % Eos # (Auto) 0.01 L (0.04-0.54) x10^3/uL Immature Gran # (Auto) 0.03 (0.001-0.031) x10^3u/L Absolute Lymphs (auto) 2.33 (1.32-3.57) x10^3/uL Absolute Monos (auto) 0.58 (0.30-0.82) x10^3/uL Absolute Nucleated RBC 0.00 (0.00-0.012) x10^3u/L Lymphocytes % 34.1 (21.8-53.1) % Monocytes % 8.5 (5.3-12.2) % Eosinophils % 0.1 L (0.8-7.0) % Basophils % 0.9 (0.2-1.2) % Absolute Granulocytes 3.83 (1.78-5.38) x10^3/uL Basophils # 0.06 (0.01-0.08) x10^3/uL PT 10.6 (9.4-12.5) SECONDS INR 0.94 (0.8-3.0) Sodium (135-145) mmol/L Potassium (3.5-5.1) mmol/L Chloride (98-107) mmol/L Carbon Dioxide (22-30) mmol/L Anion Gap (5-15) MEQ/L BUN (9-20) mg/dL Creatinine (0.66-1.25) mg/dL Estimated GFR ML/MIN Glucose (74-106) mg/dL Calcium (8.4-10.2) mg/dL Magnesium (1.6-2.3) mg/dL Total Bilirubin (0.2-1.3) mg/dL AST (17-59) U/L ALT (0-50) U/L Alkaline Phosphatase (38-126) U/L Troponin I (0.000-0.033) ng/mL Serum Total Protein (6.3-8.2) g/dL Albumin (3.5-5.0) g/dL - Progress Progress Note: Patient endorsed to Dr. Samaniego at approximately [address] Samaniego advised to follow- up on second troponin. Second troponin also negative. I contacted hospitalist Dr. Bartholomew who accepts admission to observation at 9:04 PM. Plan of care discussed with patient. Patient agreed to admission at [facility] for further evaluation and treatment. Portions of this note were created with voice recognition technology. There may be grammatical, spelling, punctuation or sound alike errors 11/03/25 21:06
[2025-11-03 18:01] LABS: BASOPHIL % 0.9 % (0.2-1.2); Basophil (Absolute #) 0.06 x10^3/uL (0.01-0.08); Eosinophil (Absolute #) 0.01 x10^3/uL (0.04-0.54); Hematocrit 48.4 % (40.1-51.0); Hemoglobin 16.3 g/dL (13.7-17.5); IMMATURE GRAN # 0.03 x10^3u/L (0.001-0.031); IMMATURE GRAN % 0.4 % (0.001-0.429); Lymphocyte (Absolute #) 2.33 x10^3/uL (1.32-3.57); Mean Corpuscular Hemoglobin 29.8 pg (25.7-32.2); Mean Corpuscular Hgb Concent. 33.7 g/dL (32.3-36.5); Monocyte (Absolute #) 0.58 x10^3/uL (0.30-0.82); NUCLEATED RBC # 0.00 x10^3u/L (0.00-0.012); NUCLEATED RBC % 0.0 % (0.00-0.2); Platelet Count 278 x10^3/uL (163-337); Red Blood Count 5.47 x10^6/uL (4.63-6.08); White Blood Count 6.8 x10^3/uL (4.23-9.07)
[2025-11-03] MEDS: BABY ASPIRIN 81 MG CHEW PO ONE ×2 (18:04→18:18)
[2025-11-03 18:17] LABS: INR 0.94 (0.8-3.0); PROTIME 10.6 SECONDS (9.4-12.5)
[2025-11-03] MEDS ORDERED: BABY ASPIRIN 81 MG CHEW ONE (18:17)
[2025-11-03 19:04] LABS: Calcium 9.7 mg/dL (8.4-10.2); Carbon Dioxide 24.0 mmol/L (22-30); Creatinine 1 1.05 mg/dL (0.66-1.25); EST GLOMERULAR FILTRATION RATE 90.3 ML/MIN; Glucose 103.0 mg/dL (74-106); Potassium 4.5 mmol/L (3.5-5.1); SGOT/AST 28.0 U/L (17-59); SGPT/ALT 25.0 U/L (0-50); Total Protein 7.5 g/dL (6.3-8.2)
[2025-11-04] MEDS ORDERED: IPRATROPIUM BROMIDE AD IH PRN (00:07)
[2025-11-04] MEDS ORDERED: Zofran 4 MG/2 ML VIAL IV PRN (00:10)
[2025-11-04] MEDS ORDERED: TYLENOL 325 MG PO PRN (00:10)
[2025-11-04] MEDS ORDERED: Nitrostat 0.4 MG Tablet SL PRN (00:12)
--- NOTE | 2025-11-04 01:25 | PCM.HP ---
History of Present Illness - Chief Complaint Chief Complaint: Chest pain, ACS Date: 11/03/25 History of Present Illness: is a 45 year old male with a history of CAD (follows with Dr. Caceres; had PCI x 1 to the LAD in August [address] [facility] in [facility]), hyperlipidemia, hypertension, gastroesophageal reflux disease, sleep apnea, anxiety and depression, who presented to the ED with stabbing constant substernal central chest pain that was associated with tingling in his left arm. The patient took 1 nitroglycerin and 1 baby aspirin, with resolution of symptoms at the time of assessment by the ED physician. He denied shortness of breath, abdominal pain, nausea, vomiting, or diarrhea. Workup in the ED did not demonstrate evidence of a WI. - Review of Systems Constitutional: No Symptoms Eyes: No Symptoms Ears, Nose, & Throat: No Symptoms Respiratory: No Symptoms Cardiac: Chest Pain, No Edema, No Palpitations, No Syncope, No Orthopnea, No PND Abdominal/Gastrointestinal: No Symptoms Genitourinary Symptoms: No Symptoms Musculoskeletal: No Symptoms Skin: No Symptoms Neurological: Parasthesia, Sensory Changes, No Dizziness, No Focal Weakness, No Gait Changes, No Headache, No Irritability, No Lethargy, No Paralysis, No Seizure, No Speech Changes, No Tics, No Tremors, No Vertigo Psychological: No Symptoms Endocrine: No Symptoms Hematologic/Lymphatic: No Symptoms Immunological/Allergic: No Symptoms All Other Systems: Reviewed and Negative Medications & Allergies Home Medications: Home Medication List Aspirin 1 tab PO DAILY 09/28/25 [History Confirmed 11/03/25] Atorvastatin Cal[place] 40 mg PO HS 09/28/25 [History Confirmed 11/03/25] Clopidogrel Bisulfate [Plavix] 75 mg PO DAILY 09/28/25 [History Confirmed 11/03/25] Fluoxetine HCl 40 mg PO DAILY 09/28/25 [History Confirmed 11/03/25] Ipratropium [place] [Atrovent Hfa] 17 mcg IH Q6H PRN PRN 09/28/25 [History Confirmed 11/03/25] Isosorbide Mononitrate 30 mg [Imdur 30 MG] 30 mg PO DAILY 09/28/25 [History Confirmed 11/03/25] Metoprolol Succinate 25 mg PO DAILY 09/28/25 [History Confirmed 11/03/25] Trazodone HCl 50 mg [Desyrel 50 mg] 50 mg PO HS 09/28/25 [History Confirmed 11/03/25] Allergies/Adverse Reactions: Allergies Allergy/AdvReac Type Severity Reaction Status Date / Time albuterol Allergy Intermediate Verified 11/03/25 17:51 - Past Medical History Past Medical History: Yes Neurological History: No Pertinent History ENT History: No Pertinent History Cardiac History: No Pertinent History Respiratory History: Sleep Apnea Endocrine Medical History: No Pertinent History Musculoskelatal History: Arthritis GI Medical History: GERD History: No Pertinent History Pyscho-Social History: Anxiety, Depression Male Reproductive Disorders: No Pertinent History Comment: blockage in heart- stent placed in LAD- placed in september- Skip Caceres - Past Surgical History Past Surgical History: Yes Neuro Surgical History: No Pertinent History Cardiac History: Cardiac Catheterization Respiratory Surgery: No Pertinent History GI Surgical History: Hernia Repair Genitourinary Surgical Hx: No Pertinent History Musculskeletal Surgical Hx: Orthopedic Surgery Male Surgical History: No Pertinent History Other Surgical History: r acl repair, RIGHT MENISCUS REPAIR, CARDIAC CATH 2024 Significant Family History: no pertinent family hx - Social History Smoking Status: Never smoker Exposure to second hand smoke: No Alcohol: None Drug Use: none - Social Determinants of Health Will the patient participate in the screening: Yes Do you worry about a steady place to live?: No Do you have any problems with any of the following?: No known problems In the past 12 months,have you had to go without utilities?: No Have you or anyone in your house had to go without enough: No Transportation Issues: No Has anyone in your support network made you feel unsafe?: No Does the patient want assistance with any of the above?: No - Physical Exam Vital Signs: Vital Signs - 24 hr Temp Pulse Pulse Resp BP BP Pulse Ox 11/04/25 00:00 97 F 88 16 135/74 93 L 11/03/25 23:19 82 14 95 11/03/25 22:09 97.0 F 76 16 135/74 93 L 11/03/25 21:30 66 18 135/94 96 11/03/25 21:00 66 16 121/88 96 11/03/25 20:30 74 19 116/85 96 11/03/25 20:00 73 23 135/85 96 11/03/25 19:30 78 21 130/94 95 11/03/25 19:00 77 20 128/102 95 11/03/25 18:30 92 H 16 126/89 96 11/03/25 18:00 86 23 122/99 94 L 11/03/25 17:56 93 L 11/03/25 17:44 97.8 F 92 H 87 23 122/99 94 L General Appearance: no apparent distress, alert Neurologic Exam: alert, oriented x 3, cooperative, 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 as tested, normal mood/affect, nml cerebellar function, sensation nml, No motor deficits, No sensory deficit, No disoriented, No confusion, No agitation Eye Exam: PERRL/EOMI, eyes nml inspection, No scleral icterus, No pale conjunctivae, No photophobia Ears, Nose, Throat Exam: normal ENT inspection Neck Exam: normal inspection, non-tender, supple, full range of motion, No meningismus Respiratory Exam: normal breath sounds, lungs clear, airway intact, No chest tenderness, No respiratory distress Cardiovascular Exam: regular rate/rhythm, normal heart sounds, No murmur, No friction rub, No gallop Gastrointestinal/Abdomen Exam: soft, normal bowel sounds, No tenderness, No distention, No mass, No guarding Back Exam: normal range of motion Extremity Exam: normal inspection, normal range of motion, No pedal edema, No swelling Skin Exam: normal color, No rash, No petechiae, No jaundice, No abrasion, No cyanosis Results - Labs Lab/Micro Results: Lab Results-Last 24 Hours 11/03/25 11/03/25 11/03/25 Range/Units 17:50 17:50 18:20 WBC 6.8 (4.23-9.07) x10^3/uL RBC 5.47 (4.63-6.08) x10^6/uL Hgb 16.3 (13.7-17.5) g/dL Hct 48.4 (40.1-51.0) % MCV 88.5 (79.0-92.2) fL MCH 29.8 (25.7-32.2) pg MCHC 33.7 (32.3-36.5) g/dL RDW 11.8 (11.6-14.4) % Plt Count 278 (163-337) x10^3/uL MPV 10.4 (9.4-12.4) fL Gran % 56.0 (34.0-67.9) % Immature Gran % (Auto) 0.4 (0.001-0.429) % Nucleat RBC Rel Count 0.0 (0.00-0.2) % Eos # (Auto) 0.01 L (0.04-0.54) x10^3/uL Immature Gran # (Auto) 0.03 (0.001-0.031) x10^3u/L Absolute Lymphs (auto) 2.33 (1.32-3.57) x10^3/uL Absolute Monos (auto) 0.58 (0.30-0.82) x10^3/uL Absolute Nucleated RBC 0.00 (0.00-0.012) x10^3u/L Lymphocytes % 34.1 (21.8-53.1) % Monocytes % 8.5 (5.3-12.2) % Eosinophils % 0.1 L (0.8-7.0) % Basophils % 0.9 (0.2-1.2) % Absolute Granulocytes 3.83 (1.78-5.38) x10^3/uL Basophils # 0.06 (0.01-0.08) x10^3/uL PT 10.6 (9.4-12.5) SECONDS INR 0.94 (0.8-3.0) Sodium 137 (135-145) mmol/L Potassium 4.5 (3.5-5.1) mmol/L Chloride 103 (98-107) mmol/L Carbon Dioxide 24 (22-30) mmol/L Anion Gap 14.8 (5-15) MEQ/L BUN 18 (9-20) mg/dL Creatinine 1.05 (0.66-1.25) mg/dL Estimated GFR 90.3 ML/MIN Glucose 103 (74-106) mg/dL Calcium 9.7 (8.4-10.2) mg/dL Magnesium 2.2 (1.6-2.3) mg/dL Total Bilirubin 0.50 (0.2-1.3) mg/dL AST 28 (17-59) U/L ALT 25 (0-50) U/L Alkaline Phosphatase 101 (38-126) U/L Troponin I (0.000-0.033) ng/mL Serum Total Protein 7.5 (6.3-8.2) g/dL Albumin 4.3 (3.5-5.0) g/dL 11/03/25 11/03/25 Range/Units 18:20 20:15 WBC (4.23-9.07) x10^3/uL RBC (4.63-6.08) x10^6/uL Hgb (13.7-17.5) g/dL Hct (40.1-51.0) % MCV (79.0-92.2) fL MCH (25.7-32.2) pg MCHC (32.3-36.5) g/dL RDW (11.6-14.4) % Plt Count (163-337) x10^3/uL MPV (9.4-12.4) fL Gran % (34.0-67.9) % Immature Gran % (Auto) (0.001-0.429) % Nucleat RBC Rel Count (0.00-0.2) % Eos # (Auto) (0.04-0.54) x10^3/uL Immature Gran # (Auto) (0.001-0.031) x10^3u/L Absolute Lymphs (auto) (1.32-3.57) x10^3/uL Absolute Monos (auto) (0.30-0.82) x10^3/uL Absolute Nucleated RBC (0.00-0.012) x10^3u/L Lymphocytes % (21.8-53.1) % Monocytes % (5.3-12.2) % Eosinophils % (0.8-7.0) % Basophils % (0.2-1.2) % Absolute Granulocytes (1.78-5.38) x10^3/uL Basophils # (0.01-0.08) x10^3/uL PT (9.4-12.5) SECONDS INR (0.8-3.0) Sodium (135-145) mmol/L Potassium (3.5-5.1) mmol/L Chloride (98-107) mmol/L Carbon Dioxide (22-30) mmol/L Anion Gap (5-15) MEQ/L BUN (9-20) mg/dL Creatinine (0.66-1.25) mg/dL Estimated GFR ML/MIN Glucose (74-106) mg/dL Calcium (8.4-10.2) mg/dL Magnesium (1.6-2.3) mg/dL Total Bilirubin (0.2-1.3) mg/dL AST (17-59) U/L ALT (0-50) U/L Alkaline Phosphatase (38-126) U/L Troponin I < 0.012 < 0.012 (0.000-0.033) ng/mL Serum Total Protein (6.3-8.2) g/dL Albumin (3.5-5.0) g/dL - Radiology Impressions Radiology Exams & Impressions: Radiology Procedures Category Date Time Status CHEST 1 VIEW (PORTABLE) Stat Exams 11/03/25 17:54 Taken - Other Procedures and Tests Respiratory Therapy 11/03/25 22:56 Respiratory Therapy Assessment DAILY 11/04/25 00:10 EKG REPEAT IN AM Assessment/Plan (1) Chest pain Current Visit: Yes Status: Acute Assessment & Plan: Serial troponins on telemetry with repeat AM EKG. Can contact the patient's environmental planner Dr. Steinberg in AM for further follow up recommendation.s Code(s): R07.9 - CHEST PAIN, UNSPECIFIED (2) CAD (coronary artery disease) Current Visit: Yes Status: Acute Assessment & Plan: Continue ASA and Plavix. Workup as above. Code(s): I25.10 - ATHSCL HEART DISEASE OF [place] CORONARY ARTERY W/O ANG PCTRS (3) Essential hypertension Current Visit: Yes Status: Acute Assessment & Plan: Monitor BP on current regimen. Code(s): I10 - ESSENTIAL (PRIMARY) HYPERTENSION (4) Hyperlipidemia Current Visit: Yes Status: Acute Assessment & Plan: Check FLP. Code(s): E78.5 - HYPERLIPIDEMIA, UNSPECIFIED Telemedicine Encounter - Telemedicine Encounter Telemedicine Encounter: "The entirety of this encounter was performed via Telemedicine" This visit was performed using real-time audio and video connection between my location and thepatients locationwith the assistance of a surrogateat the patients location. Written or verbal consent was obtained from the patient/guardian to perform this visit [facility] technology. Any patient questions regarding the telemedicine interaction were answered. Please note that this admission required 47 minutes to complete.
[2025-11-04 02:23] LABS: BASOPHIL % 1.0 % (0.2-1.2); Basophil (Absolute #) 0.07 x10^3/uL (0.01-0.08); Eosinophil (Absolute #) 0.14 x10^3/uL (0.04-0.54); Hematocrit 46.7 % (40.1-51.0); Hemoglobin 15.5 g/dL (13.7-17.5); IMMATURE GRAN # 0.04 x10^3u/L (0.001-0.031); IMMATURE GRAN % 0.6 % (0.001-0.429); Lymphocyte (Absolute #) 2.45 x10^3/uL (1.32-3.57); Mean Corpuscular Hemoglobin 29.4 pg (25.7-32.2); Mean Corpuscular Hgb Concent. 33.2 g/dL (32.3-36.5); Monocyte (Absolute #) 0.73 x10^3/uL (0.30-0.82); NUCLEATED RBC # 0.00 x10^3u/L (0.00-0.012); NUCLEATED RBC % 0.0 % (0.00-0.2); Platelet Count 263 x10^3/uL (163-337); Red Blood Count 5.27 x10^6/uL (4.63-6.08); White Blood Count 7.1 x10^3/uL (4.23-9.07)
[2025-11-04 02:52] LABS: Calcium 9.4 mg/dL (8.4-10.2); Carbon Dioxide 27.0 mmol/L (22-30); Creatinine 1 1.19 mg/dL (0.66-1.25); EST GLOMERULAR FILTRATION RATE 77.7 ML/MIN; Glucose 100.0 mg/dL (74-106); Potassium 4.1 mmol/L (3.5-5.1)
[2025-11-04 03:02] LABS: Cholesterol 113.0 mg/dL (50-200); LDL, DIRECT 61.0 mg/dL (30-100); TRIGLYCERIDE 135.0 mg/dL (30-150)
[2025-11-04 03:47] VITALS: RESP 18
[2025-11-04] MEDS ORDERED: MEDICATION INTERVENTION MC SCH (07:15)
[2025-11-04] MEDS: Prozac 20 MG PO SCH (08:53)
[2025-11-04] MEDS: Pepcid 20 MG PO SCH (08:53)
[2025-11-04] MEDS: PLAVIX Tablet PO SCH (08:53)
[2025-11-04] MEDS: Toprol-Xl 25MG Tablets PO SCH (08:53)
[2025-11-04] MEDS: ECOTRIN 81 MG PO SCH (08:54)
[2025-11-04] MEDS: Imdur 30 MG PO SCH (08:54)
[2025-11-04] MEDS: ENOXAPARIN SODIUM SQ SCH (08:54)
--- NOTE | 2025-11-04 08:59 | XRAY ---
Indication: Chest pain. Comparison: September 28, 2025 Portable chest demonstrates grossly stable mild left base infiltrate/atelectasis/effusion and minimal right base discoid atelectasis/scarring. Heart not enlarged. Bony thorax intact again with left chest loop recorder. No new findings.
[2025-11-04] MEDS ORDERED: NON-FORMULARY ITEM (Fluoxetine Hcl [Fluoxetine Hcl] 40 MG Capsule) PO SCH (10:00)
[2025-11-04] MEDS ORDERED: NON-FORMULARY ITEM (Aspirin [Aspirin] 81 MG Tablet) PO SCH (10:00)
--- NOTE | 2025-11-04 10:42 | PCM.DS ---
Discharge Summary Date of Admission: 11/03/25 22:09 Date of Discharge: 11/04/25 Admitting Physician: TESS HUBBARD MD Primary Care Provider: DENISA PEREZ JR Allergies Allergies albuterol Allergy (Intermediate, Verified 11/03/25 17:51) Hospital Summary - Hospital Course Hospital Course: is a 45-year-old male with a history of coronary artery disease (status post PCI to the LAD in August 2025 at [facility] in [place], [place], under the care of Dr. Caceres), hyperlipidemia, hypertension, gastroesophageal reflux disease, sleep apnea, anxiety, and depression. He presented to the emergency department on 11/03/25 with stabbing, constant substernal chest pain radiating to his left arm, associated with tingling. His symptoms resolved after taking one nitroglycerin and one baby aspirin prior to evaluation. He denied shortness of breath, abdominal pain, nausea, vomiting, or diarrhea. Workup in the ED showed no evidence of myocardial infarction, with serial troponins negative. On 11/04, he remained stable, denying chest pain or shortness of breath. Laboratory evaluation revealed low HDL at 26, and education was provided regarding lifestyle modifications to improve this. Chest x-ray demonstrated mild left base infiltrate/atelectasis/effusion and minimal right base discoid atelectasis/scarring, with no acute cardiopulmonary findings. Antibiotic therapy was initiated for pneumonia, and he was advised to follow up with his primary care physician for repeat chest imaging and labs to ensure resolution. 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 At discharge, his chest pain was resolved, vital signs stable, and he expressed readiness to return home. He was discharged in stable condition with instructions for outpatient follow-up. - Vitals & Intake/Output Vital Signs: Vital Signs Temperature 98.7 F 11/04/25 07:19 Pulse Rate 74 11/04/25 07:19 Respiratory Rate 18 11/04/25 07:19 Blood Pressure 116/78 11/04/25 07:19 O2 Sat by Pulse Oximetry 91 L 11/04/25 07:19 Intake & Output: Intake & Output 11/01/25 11/02/25 11/03/25 11/04/25 11:59 11:59 11:59 11:59 Intake Total 490 Output Total 300 Balance 190 Weight 102.6 kg - Lab Result Diagrams: 11/04/25 02:15 11/04/25 02:15 Lab Results-Last 24 Hrs: Lab Results-Last 24 Hours 11/03/25 11/03/25 11/03/25 Range/Units 17:50 17:50 18:20 WBC 6.8 (4.23-9.07) x10^3/uL RBC 5.47 (4.63-6.08) x10^6/uL Hgb 16.3 (13.7-17.5) g/dL Hct 48.4 (40.1-51.0) % MCV 88.5 (79.0-92.2) fL MCH 29.8 (25.7-32.2) pg MCHC 33.7 (32.3-36.5) g/dL RDW 11.8 (11.6-14.4) % Plt Count 278 (163-337) x10^3/uL MPV 10.4 (9.4-12.4) fL Gran % 56.0 (34.0-67.9) % Immature Gran % (Auto) 0.4 (0.001-0.429) % Nucleat RBC Rel Count 0.0 (0.00-0.2) % Eos # (Auto) 0.01 L (0.04-0.54) x10^3/uL Immature Gran # (Auto) 0.03 (0.001-0.031) x10^3u/L Absolute Lymphs (auto) 2.33 (1.32-3.57) x10^3/uL Absolute Monos (auto) 0.58 (0.30-0.82) x10^3/uL Absolute Nucleated RBC 0.00 (0.00-0.012) x10^3u/L Lymphocytes % 34.1 (21.8-53.1) % Monocytes % 8.5 (5.3-12.2) % Eosinophils % 0.1 L (0.8-7.0) % Basophils % 0.9 (0.2-1.2) % Absolute Granulocytes 3.83 (1.78-5.38) x10^3/uL Basophils # 0.06 (0.01-0.08) x10^3/uL PT 10.6 (9.4-12.5) SECONDS INR 0.94 (0.8-3.0) Sodium 137 (135-145) mmol/L Potassium 4.5 (3.5-5.1) mmol/L Chloride 103 (98-107) mmol/L Carbon Dioxide 24 (22-30) mmol/L Anion Gap 14.8 (5-15) MEQ/L BUN 18 (9-20) mg/dL Creatinine 1.05 (0.66-1.25) mg/dL Estimated GFR 90.3 ML/MIN Glucose 103 (74-106) mg/dL Calcium 9.7 (8.4-10.2) mg/dL Magnesium 2.2 (1.6-2.3) mg/dL Total Bilirubin 0.50 (0.2-1.3) mg/dL AST 28 (17-59) U/L ALT 25 (0-50) U/L Alkaline Phosphatase 101 (38-126) U/L Troponin I (0.000-0.033) ng/mL Serum Total Protein 7.5 (6.3-8.2) g/dL Albumin 4.3 (3.5-5.0) g/dL Triglycerides (30-150) mg/dL Cholesterol (50-200) mg/dL LDL Cholesterol (30-100) mg/dL HDL Cholesterol (40-60) mg/dL Heart Disease Risk Ratio 11/03/25 11/03/25 11/04/25 Range/Units 18:20 20:15 02:15 WBC (4.23-9.07) x10^3/uL RBC (4.63-6.08) x10^6/uL Hgb (13.7-17.5) g/dL Hct (40.1-51.0) % MCV (79.0-92.2) fL MCH (25.7-32.2) pg MCHC (32.3-36.5) g/dL RDW (11.6-14.4) % Plt Count (163-337) x10^3/uL MPV (9.4-12.4) fL Gran % (34.0-67.9) % Immature Gran % (Auto) (0.001-0.429) % Nucleat RBC Rel Count (0.00-0.2) % Eos # (Auto) (0.04-0.54) x10^3/uL Immature Gran # (Auto) (0.001-0.031) x10^3u/L Absolute Lymphs (auto) (1.32-3.57) x10^3/uL Absolute Monos (auto) (0.30-0.82) x10^3/uL Absolute Nucleated RBC (0.00-0.012) x10^3u/L Lymphocytes % (21.8-53.1) % Monocytes % (5.3-12.2) % Eosinophils % (0.8-7.0) % Basophils % (0.2-1.2) % Absolute Granulocytes (1.78-5.38) x10^3/uL Basophils # (0.01-0.08) x10^3/uL PT (9.4-12.5) SECONDS INR (0.8-3.0) Sodium (135-145) mmol/L Potassium (3.5-5.1) mmol/L Chloride (98-107) mmol/L Carbon Dioxide (22-30) mmol/L Anion Gap (5-15) MEQ/L BUN (9-20) mg/dL Creatinine (0.66-1.25) mg/dL Estimated GFR ML/MIN Glucose (74-106) mg/dL Calcium (8.4-10.2) mg/dL Magnesium (1.6-2.3) mg/dL Total Bilirubin (0.2-1.3) mg/dL AST (17-59) U/L ALT (0-50) U/L Alkaline Phosphatase (38-126) U/L Troponin I < 0.012 < 0.012 < 0.012 (0.000-0.033) ng/mL Serum Total Protein (6.3-8.2) g/dL Albumin (3.5-5.0) g/dL Triglycerides (30-150) mg/dL Cholesterol (50-200) mg/dL LDL Cholesterol (30-100) mg/dL HDL Cholesterol (40-60) mg/dL Heart Disease Risk Ratio 11/04/25 11/04/25 11/04/25 Range/Units 02:15 02:15 02:15 WBC 7.1 (4.23-9.07) x10^3/uL RBC 5.27 (4.63-6.08) x10^6/uL Hgb 15.5 (13.7-17.5) g/dL Hct 46.7 (40.1-51.0) % MCV 88.6 (79.0-92.2) fL MCH 29.4 (25.7-32.2) pg MCHC 33.2 (32.3-36.5) g/dL RDW 11.9 (11.6-14.4) % Plt Count 263 (163-337) x10^3/uL MPV 10.1 (9.4-12.4) fL Gran % 51.4 (34.0-67.9) % Immature Gran % (Auto) 0.6 H (0.001-0.429) % Nucleat RBC Rel Count 0.0 (0.00-0.2) % Eos # (Auto) 0.14 (0.04-0.54) x10^3/uL Immature Gran # (Auto) 0.04 H (0.001-0.031) x10^3u/L Absolute Lymphs (auto) 2.45 (1.32-3.57) x10^3/uL Absolute Monos (auto) 0.73 (0.30-0.82) x10^3/uL Absolute Nucleated RBC 0.00 (0.00-0.012) x10^3u/L Lymphocytes % 34.7 (21.8-53.1) % Monocytes % 10.3 (5.3-12.2) % Eosinophils % 2.0 (0.8-7.0) % Basophils % 1.0 (0.2-1.2) % Absolute Granulocytes 3.63 (1.78-5.38) x10^3/uL Basophils # 0.07 (0.01-0.08) x10^3/uL PT (9.4-12.5) SECONDS INR (0.8-3.0) Sodium 136 (135-145) mmol/L Potassium 4.1 (3.5-5.1) mmol/L Chloride 102 (98-107) mmol/L Carbon Dioxide 27 (22-30) mmol/L Anion Gap 10.6 (5-15) MEQ/L BUN 18 (9-20) mg/dL Creatinine 1.19 (0.66-1.25) mg/dL Estimated GFR 77.7 ML/MIN Glucose 100 (74-106) mg/dL Calcium 9.4 (8.4-10.2) mg/dL Magnesium (1.6-2.3) mg/dL Total Bilirubin (0.2-1.3) mg/dL AST (17-59) U/L ALT (0-50) U/L Alkaline Phosphatase (38-126) U/L Troponin I (0.000-0.033) ng/mL Serum Total Protein (6.3-8.2) g/dL Albumin (3.5-5.0) g/dL Triglycerides 135 (30-150) mg/dL Cholesterol 113 (50-200) mg/dL LDL Cholesterol 61 (30-100) mg/dL HDL Cholesterol 26 L (40-60) mg/dL Heart Disease Risk Ratio 4.0 - Radiology Exams Ordered Rad Exams-Entire Visit: Radiology Procedures Category Date Time Status CHEST 1 VIEW (PORTABLE) Stat Exams 11/03/25 17:54 Completed - Procedures and Test Procedures and Tests throughout Hospitalization: Therapy Orders & Screens 11/03/25 22:56 Respiratory Therapy Assessment DAILY Comment: Diagnosis: Chest pain, ACS 11/04/25 00:10 EKG REPEAT IN AM Comment: Diagnosis: Chest pain, ACS Discharge Exam General Appearance: no apparent distress, alert, obese Neurologic Exam: alert, oriented x 3, cooperative, normal mood/affect, nml cerebellar function, sensation nml, No motor deficits Eye Exam: PERRL, EOMI, eyes nml inspection Ears, Nose, Throat Exam: normal ENT inspection, pharynx normal, moist mucous membranes Neck Exam: normal inspection, non-tender, supple, full range of motion Respiratory Exam: normal breath sounds, lungs clear, No respiratory distress Cardiovascular Exam: regular rate/rhythm, normal heart sounds Gastrointestinal/Abdomen Exam: soft, No tenderness, No mass Male Genitalia Exam: deferred Rectal Exam: deferred Back Exam: normal inspection, normal range of motion, No CVA tenderness, No vertebral tenderness Extremity Exam: normal inspection, normal range of motion Skin Exam: normal color, warm, dry Final Diagnosis/Problem List - Final Discharge Diagnosis/Problem (1) Chest pain Current Visit: Yes Status: Acute Assessment & Plan: - Trops x3 negative - CXR: Portable chest demonstrates grossly stable mild left base infiltrate/atelectasis/effusion and minimal right base discoid atelectasis/scarring. Heart not enlarged. Bony thorax intact again with left chest loop recorder. No new findings. - CBC, CMP reviewed - Follow up with cardiology OP - Consider BNP OP if CXR does not improve Code(s): R07.9 - CHEST PAIN, UNSPECIFIED (2) Pneumonia Current Visit: Yes Status: Acute Assessment & Plan: - As seen on CXR - Labs reviewed - RA 91% - Denies SOB, cough, lungs clear - WBC normal - D/C with doxy Code(s): J18.9 - PNEUMONIA, UNSPECIFIED ORGANISM (3) Low HDL (under 40) Current Visit: Yes Status: Acute Assessment & Plan: - HDL 26 - Education provided on diet and exercise to improve Code(s): E78.6 - LIPOPROTEIN DEFICIENCY (4) Essential hypertension Current Visit: Yes Status: Chronic Assessment & Plan: - Continue home BP meds - BP stable Code(s): I10 - ESSENTIAL (PRIMARY) HYPERTENSION (5) Hyperlipidemia Current Visit: Yes Status: Chronic Assessment & Plan: - Continue statin Code(s): E78.5 - HYPERLIPIDEMIA, UNSPECIFIED (6) Obesity (BMI 30.0-34.9) Current Visit: Yes Status: Chronic Assessment & Plan: - Advised heart healthy diet and exercise control D/C plan of care > 32 minutes Code(s): E66.811 - OBESITY, CLASS 1 - Discharge Discharge Date: 11/04/25 Disposition: Home, Self-Care Condition: Stable Prescriptions: Continue Trazodone HCl 50 mg [Desyrel 50 mg] 50 mg PO HS Isosorbide Mononitrate 30 mg [Imdur 30 MG] 30 mg PO DAILY Fluoxetine HCl 40 mg PO DAILY Metoprolol Succinate 25 mg PO DAILY Atorvastatin Calcium 40 mg PO HS Clopidogrel Bisulfate [Plavix] 75 mg PO DAILY Ipratropium [place] [Atrovent Hfa] 17 mcg IH Q6H PRN PRN PRN Reason: Shortness Of Breath Aspirin 1 tab PO DAILY Instructions: High cholesterol, Cholesterol tests, Obesity, Adult, Pneumonia in adults Follow up with: DENISA PEREZ JR [Primary Care Provider, ORTHOPEDICS]
[2025-11-04 11:47] VITALS: BP 110/64; PULSE 76; TEMP 98.5; O2SAT 92
--- NOTE | 2025-11-04 14:31 | PCM.DCORD ---
- Discharge Discharge Date: 11/04/25 Disposition: Home, Self-Care Condition: Stable Prescriptions: New Doxycycline Hyclate 100 mg [Vibramycin 100 MG] 100 mg PO BID 5 Days #10 tab Continue Trazodone HCl 50 mg [Desyrel 50 mg] 50 mg PO HS Isosorbide Mononitrate 30 mg [Imdur 30 MG] 30 mg PO DAILY Fluoxetine HCl 40 mg PO DAILY Metoprolol Succinate 25 mg PO DAILY Atorvastatin Calcium 40 mg PO HS Clopidogrel Bisulfate [Plavix] 75 mg PO DAILY Ipratropium [place] [Atrovent Hfa] 17 mcg IH Q6H PRN PRN PRN Reason: Shortness Of Breath Aspirin 1 tab PO DAILY Instructions: Pneumonia in adults, Obesity, Adult, High cholesterol, Cholesterol tests Follow up with: DENISA PEREZ JR [Primary Care Provider, ORTHOPEDICS]
[2025-11-04] MEDS ORDERED: LIPITOR 40MG PO SCH (22:00)
[2025-11-04] MEDS ORDERED: DESYREL 50 MG PO SCH (22:00)
[2025-11-04] MEDS ORDERED: ZOCOR 20MG PO SCH (22:00)
== END 2025-11-04 14:40 | disposition home or self-care (01) ==
LOC: ED 17:44 → MED SURG 22:09
PROVIDERS: ADMIT Internal Medicine; ATTEND Internal Medicine
DX: R07.9 Chest pain, unspecified (principal); J18.9 Pneumonia, unspecified organism; E78.6 Lipoprotein deficiency; I10 Essential (primary) hypertension; E78.5 Hyperlipidemia, unspecified; E66.811 Obesity, class 1; I25.10 Atherosclerotic heart disease of native coronary artery without angina pectoris; K21.9 Gastro-esophageal reflux disease without esophagitis; G47.33 Obstructive sleep apnea (adult) (pediatric); Z79.899 Other long term (current) drug therapy; Z79.01 Long term (current) use of anticoagulants
CPT/HCPCS: 36415; 71045; 80048; 80053; 80061; 83721; 83735; 84484; 85025; 85610; 93005; 93268; 94760; 99285; G0378; Q3014